=== PATIENT | female | born 1995 | race African-American/Black ===

== ENCOUNTER 2024-02-08 07:32 | Outpatient (CLI) | payer OTHER, SELFPAY | END 2024-02-08 07:33 | disposition home or self-care (01) | PROVIDERS: Visit Provider Registered Nurse | DX: Z34.92 Encounter for supervision of normal pregnancy, unspecified, second trimester (principal); Z3A.16 16 weeks gestation of pregnancy | CPT/HCPCS: 86592; 86703; 86704; 86706; 86762; 86787; 86803; 86850; 86900; 86901; 87086; 87186; 87340; 87491; 87591 ==